=== PATIENT | male | born 1985 ===

== ENCOUNTER → 2019-02-22 | Outpatient (CLI) | payer OTHER ==
[~2019-02-22] MED LIST: GADOPENTETATE DIMEGLUMINE (10MMOL/20 ML) VIAL IV ONE; IOHEXOL 300 MG/ML 100ML BOTTLE IJ ONE; LIDOCAINE 2%HCL (LOCAL ANESTH.) INJ 20ML MDV ONE
== END | disposition home or self-care (01) ==
LOC: XY 08:23
DX: M25.512 Pain in left shoulder (principal); I10 Essential (primary) hypertension; E66.3 Overweight; Z79.899 Other long term (current) drug therapy
CPT/HCPCS: 23350; 73020; 77002; A9579; Q9967